=== PATIENT | female | born 1985 | race African-American/Black ===

== ENCOUNTER 2018-06-23 07:42 | Day surgery (SDC) | payer OTHER ==
[2018-06-23] VITALS (9 sets, daily range): BP systolic 99–125; BP diastolic 50–70
[~2018-06-23] VITALS: Ht 165.1 cm; Wt 72.6 kg
--- NOTE | 2018-06-23 06:48 | Anethesia Preoperative Eval ---
Anesthesia Pre-op PMH/ROS General Date of Evaluation: Jun 23, 2018 Anesthesiologist: Juanito ASA Score: ASA 1 Mallampati Score Class I : Soft palate, uvula, fauces, pillars visible Class II: Soft palate, uvula, fauces visible Class III: Soft palate, base of uvula visible Class IV: Only hard plate visible Mallampati Classification: Class II Surgeon: Maria Antonia Diagnosis: Screening Surgical Procedure: Colonoscopy Anesthesia History: none Family History: no anesthesia problems Allergies: Coded Allergies: No Known Allergies (Unverified , 06/22/18) Medications: see eMAR Patient NPO?: Yes NPO Date: Jun 22, 2018 NPO Time: 23:59 Past Medical History Cardiovascular: Denies: HTN, CAD, CO, valve dz, arrhythmia, other Pulmonary: Denies: asthma, COPD, MITUL, other Gastrointestinal/Genitourinary: Denies: GERD, CRI, ESRD, other Neurologic/Psychiatric: Denies: dementia, CVA, depression/anxiety, TIA, other Endocrine: Denies: DM, hypothyroidism, steroids, other HEENT: Denies: cataract (L), cataract (R), glaucoma, YUROK (L), YUROK (R), other Hematology/Immune: Denies: anemia, DVT, bleeding disorder, other Musculoskeletal/Integumentary: Denies: OA, RA, DJD, DDD, edema, other PSxH Narrative: hysteroscopy Anesthesia Pre-op Phys. Exam Physician Exam see chart Constitutional: NAD Cardiovascular: RRR Respiratory: CTA Airway Exam Mallampati Score: Class II MO: full ROM: full Teeth: intact Anesthesia Pre-op A/P Labs see chart Urine Test negative Studies Pre-op Studies: EKG - sr Risk Assessment & Plan Assessment: ASA I Plan: MAC Status Change Before Surgery: No Pre-Antibiotics Drug: N/A Flakita Cassidy MD Jun 23, 2018 06:47
[~2018-06-23 07:42] MED LIST: LR 1000ml 1,000 ML IVLG SCH
--- NOTE | 2018-06-23 07:44 | Pre-Procedure Note/Attestation ---
Pre-Procedure Note/Attestation Complete Prior to Procedure Planned Procedure: not applicable Procedure Narrative: Colonoscopy, possible biopsy, polypectomy, hemostasis, submucosal injection Indications for Procedure Pre-Operative Diagnosis: cancer screening, positive family history Attestation I attest that I discussed the nature of the procedure; its benefits; risks and complications; and alternatives (and the risks and benefits of such alternatives ), prior to the procedure, with the patient (or the patient's legal telephone claims representative). I attest that, if there was a reasonable possibility of needing a blood transfusion, the patient (or the patient's legal telephone claims representative) was given the [facility] standardized written summary, pursuant to the Joel [place]oy[place] Blood Safety Act ([place] Health and Safety Code # 1645, as amended). I attest that I re-evaluated the patient just prior to the surgery and that there has been no change in the patient's H&P, except as documented below: Bella Em MD Jun 23, 2018 07:44
[2018-06-23] MEDS ORDERED: LR 1000ml 1,000 ML IVLG SCH ×2 (07:57→08:05)
[2018-06-23] MEDS ORDERED: DiphenhydrAMINE 50mg/ml Inj IVP PRN ×2 (08:00→08:15)
[2018-06-23] MEDS ORDERED: Lidocaine 0.5% Epi 50 mL Vial ONE (08:00)
[2018-06-23] MEDS ORDERED: LR 1000ml ONE (08:00)
[2018-06-23] MEDS ORDERED: Propofol 200mg/20ml IV ONE (08:00)
[2018-06-23] MEDS ORDERED: VSL#3 CAPSULE1 EACH PO (08:19)
[2018-06-23] MEDS ORDERED: CAL PO (08:19)
[2018-06-23] MEDS ORDERED: ASHWAGANDHA PO (08:19)
[2018-06-23] MEDS ORDERED: ZINC PO (08:19)
[2018-06-23] MEDS ORDERED: MAGNESIUM PO (08:19)
[2018-06-23] MEDS ORDERED: [UNRECOGNIZED DRUG - OTHER] PO (08:19)
--- NOTE | 2018-06-23 09:36 | Endoscopy Procedure Note ---
Endoscopy Procedure Note General Procedures Performed: colonoscopy Operative Findings/Diagnosis: lindsey diverticulosis Specimen: none Pt Tolerated Procedure Well: Yes Estimated Blood Loss: none Anesthesia Anesthesiologist: Flakita Solomon MD Anesthesia: moderate sedation Medications Medication Given: see anesthesia record Inserted Devices Implant(s) used?: No Quality Quality of Bowel Preparation: Excellent Did scope reach the cecum?: Yes Was there any complications?: No GI Core Measures 50 yrs or older w/o bx or poly: No 10yrs. F/U not recommended: No Bella Em MD Jun 23, 2018 09:36
--- NOTE | 2018-06-23 09:41 | Immediate Post-Op Evaluation ---
Immediate Post-Op Evalulation Immediate Post-Op Evalulation Procedure: colonoscopy Date of Evaluation: Jun 23, 2018 Time of Evaluation: 09:44 IV Fluids: 1L Blood Products: 0 Estimated Blood Loss: 0 Urinary Output: 0 Blood Pressure Systolic: 121 Blood Pressure Diastolic: 56 Pulse Rate: 87 Respiratory Rate: 16 O2 Sat by Pulse Oximetry: 100 Temperature (Fahrenheit): 97.4 Pain Score (1-10): 0 Nausea: No Vomiting: No Complications 0 Patient Status: awake, reacts, patent, none Hydration Status: adequate Drug: N/A Flakita Cassidy MD Jun 23, 2018 09:41
--- NOTE | 2018-06-23 09:42 | 48 Hour Post Anesthesia Eval ---
Post Anesthesia Evaluation Procedure: colonoscopy Date of Evaluation: Jun 23, 2018 Airway: patent Nausea: No Vomiting: No Pain Intensity: 0 Hydration Status: adequate Cardiopulmonary Status: at baseline Mental Status/LOC: patient returned to baseline Post-Anesthesia Complications: 0 Follow-up care needed: ready to discharge Flakita Cassidy MD Jun 23, 2018 09:42
--- NOTE | 2018-06-23 15:45 | Operative Note - Dictated ---
DATE OF OPERATION: 06/23/2018 PREPROCEDURE DIAGNOSIS: Cancer screening, positive family history. POSTPROCEDURE DIAGNOSES: Pandiverticulosis, anal papilla, mild internal hemorrhoids. PROCEDURE: Colonoscopy. SURGEON: Bella Em M.D. ANESTHESIOLOGIST: Flakita Solomon M.D. ANESTHESIA: Propofol sedation. INDICATION FOR PROCEDURE: The patient is a 33-year-old female, who has strong family history of cancer in her family. The patient also has abdominal pain with some occasional rectal bleeding. In light of the patient's symptoms and history, it was determined at this time to proceed with the first time colonoscopy. DESCRIPTION OF PROCEDURE: Upon consent of the patient, the patient was brought to the procedure room and placed in a left lateral decubitus position. Once adequate sedation had been established with propofol drip, digital rectal exam was performed, which showed some mild internal hemorrhoids and anal papilla. An Olympus colonoscope was advanced through the anus and into the rectum. The descending colon, splenic flexure, transverse colon, hepatic flexure, and ascending colon were visualized. The cecum was easily reached, and the ileocecal valve and appendiceal orifice were identified. The patient's prep was noted to be good. The colonoscope was slowly withdrawn. There was noted to be no masses, polyps, or colitis. There was noted to be pandiverticulosis, which were not acutely inflamed and were scattered. Upon reaching the rectum, the colonoscope was retroflexed and there was noted to be mild internal hemorrhoids with anal papilla. The scope was straightened, air was evacuated from the rectum, and the colonoscope was removed. The patient was awakened from anesthesia and brought to postanesthesia recovery room in stable condition. There were no complications. IMPRESSION: Pandiverticulosis, moderate internal hemorrhoids, anal papilla. PLAN: Repeat colonoscopy in 5 years, continue high-fiber diet, yearly follow up. Bella Em M.D. DR: NAVJOT JOB#: [id number] CC: Bella Em M.D.; Fax#: [phone] Otto Amanda M.D. Samantha De La O M.D.
== END 2018-06-23 11:35 | disposition home or self-care (01) ==
LOC: GAS 07:42
DX: Z12.11 Encounter for screening for malignant neoplasm of colon (principal); K57.30 Diverticulosis of large intestine without perforation or abscess without bleeding; K64.4 Residual hemorrhoidal skin tags; K64.8 Other hemorrhoids; I10 Essential (primary) hypertension; Z80.0 Family history of malignant neoplasm of digestive organs
CPT/HCPCS: 45378; 81025; J2704; 94003; 94150